=== PATIENT | female | born 1945 | race Caucasian/White ===

== ENCOUNTER 2016-08-29 03:10 | Emergency (ER) | payer OTHER ==
[2016-08-29] MEDS ORDERED: ONDANSETRON 4 MG/2ML 2 ML VIAL ONE (03:43)
[2016-08-29] MEDS ORDERED: SODIUM CHLORIDE 0.9% 1,000 ML ONE (03:43)
[2016-08-29 03:56] LABS: ABSOLUTE NEUTROPHIL COUNT 3.9 K/mm3 (1.8-7.7); BASO % 0.3 % (0.2-1.0); EOS # 0.1 (0.0-0.5); EOS % 1.4 % (0.9-2.9); HEMATOCRIT 39.4 % (37.0-47.0); HEMOGLOBIN 13.5 gm/l (12.0-16.0); IMM NEUT% 0.2 % (0-1); LYMPH # 1.3 (1.0-4.8); LYMPH % 21.7 % (15-45); MEAN CORPUSCULAR HEMOGLOBIN 33.9 pg (27.0-31.0); MEAN CORPUSCULAR HGB CONC 34.3 g/dl (33.0-37.0); MEAN PLATELET VOLUME 9.5 fl (7.4-10.4); MONO # 0.6 (0.0-0.8); MONO % 9.4 % (4-12); PLATELET COUNT 215 K/mm3 (130-400)
[2016-08-29 04:39] LABS: I-STAT CREATININE 0.6 mg/dL (0.6-1.3)
[2016-08-29 05:19] LABS: ALB/GLOB RATIO 1.6 (>1.0); ALBUMIN 4.8 gm/dL (3.5-5.7); MAGNESIUM 1.6 mg/dL (1.9-2.7)
[2016-08-29 05:37] LABS: C DIFF TOXIN A/B NEGATIVE (NEGATIVE)
[2016-08-29 05:48] LABS: CALCIUM 9.6 mg/dL (8.6-10.3)
== END 2016-08-29 05:27 | disposition home or self-care (01) ==
LOC: ED 03:10
DX: R19.7 Diarrhea, unspecified (principal); R11.2 Nausea with vomiting, unspecified
CPT/HCPCS: 87324; 87449; 85025; 87045; 87046 ×2; 87427; 80053; 87205; 83735; 99283 ×2; 96374; 96361; J2405; J7030